=== PATIENT | male | born 1980 | race Caucasian/White ===

== ENCOUNTER 2021-02-13 17:56 | Emergency (ER) | payer MEDICAID ==
[~2021-02-13] VITALS: Ht 177.8 cm; Wt 68.2 kg
[2021-02-13 18:00] VITALS: Ht 177.8 cm; Wt 68.2 kg
[2021-02-13] MEDS ORDERED: HYDROCODON-ACE1 EA10 PO (19:01)
[2021-02-13 20:07] VITALS: BP 133/83
== END 2021-02-13 20:07 | disposition home or self-care (01) ==
LOC: D.ER 17:56
DX: S92.332A Displaced fracture of third metatarsal bone, left foot, initial encounter for closed fracture (principal); V86.56XA Driver of dirt bike or motor/cross bike injured in nontraffic accident, initial encounter; Y93.9 Activity, unspecified; Y92.9 Unspecified place or not applicable